=== PATIENT | female | born 1985 | race Two or more races ===

== ENCOUNTER 2017-12-16 17:45 | Emergency (ER) | payer MEDICAID ==
[2017-12-16 18:27] VITALS: BP 124/60
--- NOTE | 2017-12-16 19:49 | ED ---
Skin Complaint - HPI Summary HPI Summary: 32 year old presents with rash on right foot for the past couple days. She states that it started on her toes and has been spread up to her ankle. States the rash is very itchy. She hasn't taking anything for her symptoms. She states she is 5 months . She denies any fevers. No chest pain shortness breath. never had this rash before. She was outside. denies any Contact with any new products or soaps. Never had this rash before. No medical conditions. - History of Current Complaint Chief Complaint: EDRashSkinAbscess Time Seen by Provider: 12/16/17 19:12 Stated Complaint: RASH ON FOOT Hx Last Menstrual Period: 01/29/14 Pain Intensity: 0 - Allergy/Home Medications Allergies/Adverse Reactions: Allergies Allergy/AdvReac Type Severity Reaction Status Date / Time No Known Allergies Allergy Verified 12/16/17 19:20 Home Medications: Home Medications NK [No Home Medications Reported] 12/16/17 [History Confirmed 12/16/17] PMH/Surg Hx/FS Hx/Imm Hx Endocrine/Hematology History: Denies: Hx Diabetes, Hx Thyroid Disease Cardiovascular History: Denies: Hx Hypertension Respiratory History: Denies: Hx Asthma, Hx Chronic Obstructive Pulmonary Disease (COPD) GI History: Denies: Hx Ulcer - Surgical History Surgery Procedure, Year, and Place: wisdom teeth extraction Infectious Disease History: No Infectious Disease History: Denies: Hx Hepatitis, Hx Human Immunodeficiency Virus (HIV), Traveled Outside the [place] in Last 30 Days - Family History Known Family History: Positive: None - Social History Alcohol Use: None Substance Use Type: Reports: None Smoking Status (MU): Never Smoked Tobacco Have You Smoked in the Last Year: No Review of Systems Negative: Fever Negative: Chest Pain Negative: Shortness Of Breath Positive: Rash All Other Systems Reviewed And Are Negative: Yes Physical Exam Triage Information Reviewed: Yes Vital Signs On Initial Exam: Initial Vitals Temp Pulse Resp BP Pulse Ox 98.3 F 74 16 124/60 98 12/16/17 18:24 12/16/17 18:24 12/16/17 18:24 12/16/17 18:24 12/16/17 18:24 Vital Signs Reviewed: Yes Appearance: Positive: Well-Appearing Skin: Positive: Warm, Dry, Other - papules with eccorication on right foot in a line Head/Face: Positive: Normal Head/Face Inspection Eyes: Positive: Normal, Conjunctiva Clear ENT: Positive: Pharynx normal Respiratory/Lung Sounds: Positive: Clear to Auscultation, Breath Sounds Present Cardiovascular: Positive: Normal, RRR Musculoskeletal: Positive: Normal Neurological: Positive: Normal Psychiatric: Positive: Normal Diagnostics - Vital Signs Vital Signs Temp Pulse Resp BP Pulse Ox 12/16/17 18:24 98.3 F 74 16 124/60 98 - Laboratory Result Diagrams: 12/16/17 19:56 12/16/17 19:56 Lab Statement: Any lab studies that have been ordered have been reviewed, and results considered in the medical decision making process. Course/Dx - Course Course Of Treatment: 32 year old presents with rash on right foot for the past couple days. She states that it started on her toes and has been spread up to her ankle. States the rash is very itchy. She hasn't taking anything for her symptoms. She states she is 5 months . She denies any fevers. No chest pain shortness breath. never had this rash before. She was outside. denies any Contact with any new products or soaps. Never had this rash before. No medical conditions. on exam his papules in line on right foot. It appears most consistent with contact dermatitis. Got lab work and lfts normal do not suspect Intrahepatic cholestasis of . Patient has follow up with OB. Told to place hydrocortisone and take Benadryl. Patient understands agrees the plan. - Differential Diagnoses - Skin Complaint Differential Diagnoses: Cellulitis, Contact Dermatitis, Other - type rashes - Diagnoses Provider Diagnoses: Rash Discharge - Sign-Out/Discharge Documenting (check all that apply): Patient Departure - Discharge Plan Condition: Good Disposition: HOME Patient Education Materials: Contact Dermatitis (ED) Referrals: No Primary Care Phys,NOPCP [Primary Care Provider] - Additional Instructions: Take Benadryl every 6 hours Can apply cream with hydrocortisone to area for itchy can apply calamine lotion to area follow up with ob Return to ED if develop shortness of breath, difficulty swallowing or any new or worsening symptoms - Billing Disposition and Condition Condition: GOOD Disposition: Home
[2017-12-16 20:09] LABS: ABS Basophils 0.1 10^3/ul (0-0.2); ABS Eosinophils 0.1 10^3/ul (0-0.6); ABS Lymphocytes 2.4 10^3/ul (1.0-4.8); ABS Neutrophils 7.1 10^3/ul (1.5-7.7); ABS Nucleated RBC 0 10^3/ul; Eosinophil % 1.1 % (0-6); Hematocrit 36 % (35-47); Hemoglobin 12.4 g/dl (12.0-16.0); Lymphocyte % 22.4 % (25-47); Mean Corpuscular HGB Conc 34 g/dl (31-36); Mean Corpuscular Hemoglobin 31 pg (27-31); Mean Corpuscular Volume 92 fL (80-97); Mean Platelet Volume 8.6 um3 (7.4-10.4); Nucleated Red Blood Cells % 0; Platelet Count 224 10^3/ul (150-450); Red Blood Count 3.94 10^6/ul (4.00-5.40); Red Cell Distribution Width 13 % (10.5-15); White Blood Count 10.7 10^3/ul (3.5-10.8)
[2017-12-16 20:20] LABS: EGFR Non-African American 113.7 (>60)
== END 2017-12-16 20:50 | disposition home or self-care (01) ==
LOC: ED 17:45
DX: R21 Rash and other nonspecific skin eruption (principal)
CPT/HCPCS: 36415; 80053; 85025; 99282

== ENCOUNTER 2018-02-13 18:31 | Emergency (ER) | payer MEDICAID ==
[2018-02-13 19:59] LABS: ABS Basophils 0 10^3/ul (0-0.2); ABS Eosinophils 0.1 10^3/ul (0-0.6); ABS Monocytes 1.2 10^3/ul (0-0.8); ABS Neutrophils 8.7 10^3/ul (1.5-7.7); ABS Nucleated RBC 0 10^3/ul; Eosinophil % 0.8 % (0-6); Hematocrit 35 % (35-47); Hemoglobin 11.8 g/dl (12.0-16.0); Lymphocyte % 16.9 % (25-47); Mean Corpuscular HGB Conc 34 g/dl (31-36); Mean Corpuscular Hemoglobin 30 pg (27-31); Mean Corpuscular Volume 90 fL (80-97); Mean Platelet Volume 8.6 um3 (7.4-10.4); Nucleated Red Blood Cells % 0.1; Platelet Count 209 10^3/ul (150-450); Red Blood Count 3.89 10^6/ul (4.00-5.40); Red Cell Distribution Width 13 % (10.5-15); White Blood Count 12.1 10^3/ul (3.5-10.8)
[2018-02-13 20:19] LABS: EGFR Non-African American 110.9 (>60)
--- NOTE | 2018-02-13 21:43 | ED ---
HPI Chest Pain - HPI Summary HPI Summary: The pt is a 27-week 33 y/o female presenting to [facility] c/o mid sternal CP since yesterday. She reports cough but denies vaginal bleeding and discharge , N/V/D and SOB. The pain rated 7/10 in severity is described as burning. The pt denies a hx of GERD. She does not take vitamins. Dr Maru MD is her safety equipment tester. - History of Current Complaint Chief Complaint: EDChestPainROMI Time Seen by Provider: 02/13/18 21:13 Hx Obtained From: Patient Hx Last Menstrual Period: 01/29/14 Onset/Duration: Started Hours Ago Initial Severity: Moderate Current Severity: Moderate Pain Intensity: 7 Pain Scale Used: 0-10 Numeric Chest Pain Location: Mid Sternal Chest Pain Radiates: No Character: Burning, Cough, Non-Productive Alleviating Factor(s): Nothing Associated Signs and Symptoms: Positive: Chest Pain, Nonproductive Cough. Negative: Shortness of Breath, Nausea, Vomiting - Allergy/Home Medications Allergies/Adverse Reactions: Allergies Allergy/AdvReac Type Severity Reaction Status Date / Time No Known Allergies Allergy Verified 12/16/17 19:20 PMH/Surg Hx/FS Hx/Imm Hx Previously Healthy: No Endocrine/Hematology History: Denies: Hx Diabetes, Hx Thyroid Disease Cardiovascular History: Denies: Hx Hypertension Respiratory History: Reports: Hx Asthma Denies: Hx Chronic Obstructive Pulmonary Disease (COPD) GI History: Denies: Hx Gastroesophageal Reflux Disease, Hx Ulcer - Cancer History Cancer Type, Location and Year: None reported - Surgical History Surgery Procedure, Year, and Place: wisdom teeth extraction Infectious Disease History: No Infectious Disease History: Denies: Hx Hepatitis, Hx Human Immunodeficiency Virus (HIV), Traveled Outside the [place] in Last 30 Days - Family History Known Family History: Negative: Cardiac Disease, Diabetes - Social History Occupation: Employed Full-time Lives: With Family Alcohol Use: Occasionally Substance Use Type: Reports: Marijuana Smoking Status (MU): Never Smoked Tobacco Have You Smoked in the Last Year: No Review of Systems Positive: Chest Pain Positive: Cough. Negative: Shortness Of Breath Negative: Vomiting, Diarrhea, Nausea Genitourinary: Negative - Vaginal bleeding abnd discharge All Other Systems Reviewed And Are Negative: Yes Physical Exam - Summary Physical Exam Summary: GENERAL: Patient is a gravid well developed and nourished F who is lying comfortable in the stretcher. Patient is not in any acute respiratory distress. HEAD AND FACE: Normocephalic EYES: PERRLA, EOMI x 2. EARS: Hearing grossly intact. MOUTH: Oropharynx within normal limits. NECK: Supple, trachea is midline, no adenopathy, no JVD, no carotid bruit. CHEST: Symmetric, no tenderness at palpation LUNGS: Clear to auscultation bilaterally. No wheezing or crackles. CVS: Regular rate and rhythm, S1 and S2 present, no murmurs or gallops appreciated. ABDOMEN: Soft, non-tender. Bowel sounds are normal. No abdominal abnormal pulsations. EXTREMITIES: Full ROM in all major joints, no edema, no cyanosis or clubbing. NEURO: Alert and oriented x 3. No acute neurological deficits. Speech is normal and follows commands. SKIN: Dry and warm Triage Information Reviewed: Yes Vital Signs On Initial Exam: Initial Vitals Temp Pulse Resp BP Pulse Ox 97.5 F 68 18 116/58 98 02/13/18 18:33 02/13/18 18:33 02/13/18 18:33 02/13/18 18:33 02/13/18 18:33 Vital Signs Reviewed: Yes Diagnostics - Vital Signs Vital Signs Temp Pulse Resp BP Pulse Ox 02/13/18 18:33 97.5 F 68 18 116/58 98 - Laboratory Lab Results: Lab Results 02/13/18 02/13/18 02/13/18 Range/Units 19:50 19:50 19:50 WBC 12.1 H (3.5-10.8) 10^3/ul RBC 3.89 L (4.00-5.40) 10^6/ul Hgb 11.8 L (12.0-16.0) g/dl Hct 35 (35-47) % MCV 90 (80-97) fL MCH 30 (27-31) pg MCHC 34 (31-36) g/dl RDW 13 (10.5-15) % Plt Count 209 (150-450) 10^3/ul MPV 8.6 (7.4-10.4) um3 Neut % (Auto) 72.0 (38-83) % Lymph % (Auto) 16.9 L (25-47) % [place] % (Auto) 10.1 H (0-7) % Eos % (Auto) 0.8 (0-6) % Baso % (Auto) 0.2 (0-2) % Absolute Neuts (auto) 8.7 H (1.5-7.7) 10^3/ul Absolute Lymphs (auto) 2.0 (1.0-4.8) 10^3/ul Absolute Monos (auto) 1.2 H (0-0.8) 10^3/ul Absolute Eos (auto) 0.1 (0-0.6) 10^3/ul Absolute Basos (auto) 0 (0-0.2) 10^3/ul Absolute Nucleated RBC 0 10^3/ul Nucleated RBC % 0.1 Sodium 136 (135-145) mmol/L Potassium 3.8 (3.5-5.0) mmol/L Chloride 105 (101-111) mmol/L Carbon Dioxide 25 (22-32) mmol/L Anion Gap 6 (2-11) mmol/L BUN 6 (6-24) mg/dL Creatinine 0.62 (0.51-0.95) mg/dL Est GFR ( Amer) 134.1 (>60) Est GFR (Non-Af Amer) 110.9 (>60) BUN/Creatinine Ratio 9.7 (8-20) Glucose 99 (70-100) mg/dL Lactic Acid 1.0 (0.5-2.0) mmol/L Calcium 8.6 (8.6-10.3) mg/dL Total Bilirubin 0.50 (0.2-1.0) mg/dL AST 14 (13-39) U/L ALT 10 (7-52) U/L Alkaline Phosphatase 74 (34-104) U/L Troponin I 0.00 (<0.04) ng/mL Total Protein 6.7 (6.4-8.9) g/dL Albumin 3.3 (3.2-5.2) g/dL Globulin 3.4 (2-4) g/dL Albumin/Globulin Ratio 1.0 (1-3) 02/13/18 Range/Units 21:05 WBC (3.5-10.8) 10^3/ul RBC (4.00-5.40) 10^6/ul Hgb (12.0-16.0) g/dl Hct (35-47) % MCV (80-97) fL MCH (27-31) pg MCHC (31-36) g/dl RDW (10.5-15) % Plt Count (150-450) 10^3/ul MPV (7.4-10.4) um3 Neut % (Auto) (38-83) % Lymph % (Auto) (25-47) % [place] % (Auto) (0-7) % Eos % (Auto) (0-6) % Baso % (Auto) (0-2) % Absolute Neuts (auto) (1.5-7.7) 10^3/ul Absolute Lymphs (auto) (1.0-4.8) 10^3/ul Absolute Monos (auto) (0-0.8) 10^3/ul Absolute Eos (auto) (0-0.6) 10^3/ul Absolute Basos (auto) (0-0.2) 10^3/ul Absolute Nucleated RBC 10^3/ul Nucleated RBC % Sodium (135-145) mmol/L Potassium (3.5-5.0) mmol/L Chloride (101-111) mmol/L Carbon Dioxide (22-32) mmol/L Anion Gap (2-11) mmol/L BUN (6-24) mg/dL Creatinine (0.51-0.95) mg/dL Est GFR ( Amer) (>60) Est GFR (Non-Af Amer) (>60) BUN/Creatinine Ratio (8-20) Glucose (70-100) mg/dL Lactic Acid (0.5-2.0) mmol/L Calcium (8.6-10.3) mg/dL Total Bilirubin (0.2-1.0) mg/dL AST (13-39) U/L ALT (7-52) U/L Alkaline Phosphatase (34-104) U/L Troponin I 0.00 (<0.04) ng/mL Total Protein (6.4-8.9) g/dL Albumin (3.2-5.2) g/dL Globulin (2-4) g/dL Albumin/Globulin Ratio (1-3) Result Diagrams: 02/13/18 19:50 02/13/18 19:50 Lab Statement: Any lab studies that have been ordered have been reviewed, and results considered in the medical decision making process. - Radiology CXR Radiology Interpretation Completed By: ED Physician - IMPRESSION: No acute processes - Ultrasound No standard instances Ultrasound Interpretation Completed By: Radiologist - VENOUS MPRESSION: No acute findings. No evidence of deep vein thrombosis. The ED physician reviewed this radiology report. - EKG 18:36 Cardiac Rate: NL - 65 bpm EKG Rhythm: Sinus Rhythm Ectopy: PACs - Occassional Re-Evaluation - Re-Evaluation First Eval Re-Evaluation Time: 00:37 Change: Improved - The pt was scheduled for a second trooponin but wants to go home. She requests to be called if the results are abnormal. Chest Pain Course/Dx - Course Course Of Treatment: A 33 year-old 27-week F presents to the ED with a CC of mid sternal CP since yesterday. She reports cough but denies vaginal bleeding and discharge, N/V/D and SOB. The pain rated 7/10 in severity is described as burning. The pt denies a hx of GERD. A physical exam revealed a gravid state and is otherwise unremarkable. A CXR is unremarkable. An EKG reveals occasional PACs. A venous Dopper study is unremarkable. In the ED course, pt was given a GI cocktail with Lidocaine which improved the symptoms. Patient will be discharged with a final Dx of chest pain. I discussed the care of the pt with Dr. Charanjit Harding MD who agreed with giving the pt a GI cocktail containing Lidocaine. The pts D dimer is elevated due to normal physiology of . She is not tachycardia or hypoxic. Hence low suspicion for pulmonary embolism. An ultrasound in the ED revealed a heart rate between 150 and 160 bpm. I discussed results with patient and she agrees with this plan.She is hemodynamically stable upon discharge. Strict return precautions given and she will otherwise follow up with her PCP. Allergies noted. - Diagnoses Provider Diagnoses: Chest pain, - Provider Notifications Discussed Care Of Patient With: Meaghan Donohue - Utilization Supervisor Time Discussed With Above Provider: 23:21 Instructed by Provider To: Other - Dr. Donhoue agrees with giving the GI coctail with liquid lidocaine. The Utilization Supervisor team performed an US that revealed a HR between 150 and 160. Discharge - Sign-Out/Discharge Documenting (check all that apply): Patient Departure - DC - Discharge Plan Condition: Improved Disposition: HOME Patient Education Materials: Chest Pain (ED), Gastroesophageal Reflux Disease ( ED) Referrals: [facility] [Outside] Additional Instructions: Follow up with PCP in 1-3 days. Return to ED for any new or worsening symptoms - Billing Disposition and Condition Condition: IMPROVED Disposition: Home - Attestation Statements Document Initiated by Scribe: Yes Documenting Scribe: An Allen Provider For Whom Scribe is Documenting (Include Credential): Dr. Bradley Oliver MD Scribe Attestation: An Jane, scribed for Dr. Bradley Oliver MD on 02/14/18 at 0518. Scribe Documentation Reviewed: Yes Provider Attestation: The documentation as recorded by the An yarbrough accurately reflects the service I personally performed and the decisions made by me, Dr. Bradley Oliver MD
[2018-02-13] MEDS ORDERED: Ranitidine TAB (NF) 150 MG TAB PO ONE (21:55)
[2018-02-13] MEDS ORDERED: Famotidine TAB* 20 MG PO ONE (23:00)
[2018-02-13] MEDS ORDERED: Al Hydrox/Mg Hydrox/Simet LIQ* 30 ML UDC PO ONE (23:24)
[2018-02-13] MEDS ORDERED: Lidocaine 2% VISCOUS* 15 ML UDC PO ONE (23:24)
--- NOTE | 2018-02-13 23:53 | RAD ---
EXAM: US Bilateral Duplex Lower Extremity Veins EXAM DATE/TIME: 02/13/2018 11:35 PM CLINICAL HISTORY: 33 years old, female; Signs and symptoms; Other: Chest pain, ; Additional info: Eval for dvt TECHNIQUE: Real-time duplex ultrasound of the Bilateral Lower Extremities with 2-D dotson scale, color Doppler flow and spectral waveform analysis. Complete exam focused on the bilateral lower extremity veins. COMPARISON: No relevant prior studies available. FINDINGS: Right deep veins: Normal. The common femoral, femoral and popliteal veins are patent without thrombus. Normal compressibility, augmentation response and Doppler waveforms. Right superficial veins: Saphenofemoral junction is patent without thrombus. Left deep veins: Normal. The common femoral, femoral and popliteal veins are patent without thrombus. Normal compressibility, augmentation response and Doppler waveforms. Left superficial veins: Saphenofemoral junction is patent without thrombus. Soft tissues: Normal. IMPRESSION: No acute findings. No evidence of deep vein thrombosis. To contact [facility] with a general question: [facility] - [phone] For direct physician to physician contact: Physician Hotline - [phone] [facility] ([facility] Facility ID #[id number])
[2018-02-14 00:45] VITALS: BP 138/85
--- NOTE | 2018-02-14 07:51 | RAD ---
HISTORY: chest pain COMPARISONS: None VIEWS: 1: frontal AP view of the chest at 6:56 PM FINDINGS: LINES AND TUBES: None. CARDIOMEDIASTINAL SILHOUETTE: The cardiomediastinal silhouette is normal for portable technique. PLEURA: The costophrenic angles are sharp. No pleural abnormalities are noted. LUNG PARENCHYMA: The lungs are clear. ABDOMEN: The upper abdomen is clear. There is no subphrenic gas. BONES AND SOFT TISSUES: No bone or soft tissue abnormalities are noted. IMPRESSION: NO ACTIVE CARDIOPULMONARY DISEASE. R0
== END 2018-02-14 00:32 | disposition home or self-care (01) ==
LOC: ED 18:31
DX: R07.9 Chest pain, unspecified (principal); R05 Cough; Z34.92 Encounter for supervision of normal pregnancy, unspecified, second trimester
CPT/HCPCS: 36415; 71045; 80053; 83605; 83690; 84484; 85025; 85379; 93005; 93970; 99283; A9270-GY

== ENCOUNTER 2018-02-18 18:12 | Emergency (ER) | payer MEDICAID ==
[2018-02-18 18:44] VITALS: BP 111/66
--- NOTE | 2018-02-18 18:56 | UC ---
Respiratory Complaint HPI - HPI Summary HPI Summary: 33 yo female presents with sinus pain/pressure/congestion and productive cough. She is currently 28 weeks and this is her 3rd . She has had no issues thusfar and the baby is very active. She tells me that about 5 days ago she went to the ER for chest pain with coughing. Per pt they took XRs and bloodwork and everything was normal and she was not treated with any medications. Since that time she has had worsening sinus symptoms and her cough is persistent. She has not been taking anything OTC. Denies fever, chills, SOB, chest pain, abdominal pain, or vaginal bleeding. - History of Current Complaint Chief Complaint: UCRespiratory Stated Complaint: COUGH, AND CONGESTION Time Seen by Provider: 02/18/18 18:55 Hx Obtained From: Patient Hx Last Menstrual Period: 01/29/14 Onset/Duration: Gradual Onset Severity Initially: Moderate Severity Currently: Moderate Pain Intensity: 8 Pain Scale Used: 0-10 Numeric Character: Cough: Productive - Allergies/Home Medications Allergies/Adverse Reactions: Allergies Allergy/AdvReac Type Severity Reaction Status Date / Time No Known Allergies Allergy Verified 02/18/18 18:44 PMH/Surg Hx/FS Hx/Imm Hx - Additional Past Medical History Additional PMH: None - Surgical History Surgical History: Yes Surgery Procedure, Year, and Place: wisdom teeth extraction - Family History Known Family History: Positive: None Negative: Cardiac Disease, Diabetes - Social History Occupation: Employed Full-time Lives: With Family Alcohol Use: None Substance Use Type: None Smoking Status (MU): Never Smoked Tobacco Have You Smoked in the Last Year: No - Immunization History Most Recent Influenza Vaccination: 02/11/15 Most Recent Tetanus Shot: 01/28/15 Most Recent Pneumonia Vaccination: not indicated Review of Systems Constitutional: Negative Skin: Negative Eyes: Negative ENT: Nasal Discharge, Sinus Congestion, Sinus Pain/Tenderness Respiratory: Cough Cardiovascular: Negative Gastrointestinal: Negative Genitourinary: Negative Neurovascular: Negative Neurological: Negative Psychological: Negative All Other Systems Reviewed And Are Negative: Yes Physical Exam - Summary Physical Exam Summary: GENERAL: NAD. Mildly ill appearing SKIN: No rashes, sores, lesions, or open wounds. HEENT: Head: AT/NC Eyes: EOM intact. Conjunctiva clear without inflammation or discharge. Ears: Hearing grossly normal. TMs intact, no bulging, erythema, or edema. Nose: Nasal mucosa mildly swollen and erythematous. TTP maxillary and frontal sinus. Positive post nasal drip Throat: Posterior oropharynx without exudates, erythema, or tonsillar enlargement. Uvula midline. NECK: Supple. Nontender. No lymphadenopathy. CHEST: CTAB. No r/r/w. No accessory muscle use. Breathing comfortably and in no distress. CV: RRR. Without m/r/g. Pulses intact. NEURO: Alert. PSYCH: Age appropriate behavior. Triage Information Reviewed: Yes Vital Signs: Initial Vital Signs Temp 98.1 F 02/18/18 18:40 Pulse 78 02/18/18 18:40 Resp 18 02/18/18 18:40 BP 111/66 02/18/18 18:40 Pulse Ox 99 02/18/18 18:40 Vital Signs Reviewed: Yes UC Diagnostic Evaluation - Laboratory O2 Sat by Pulse Oximetry: 99 Respiratory Course/Dx - Course Course Of Treatment: Sinusitis. She has a follow up with her OBGYN in 10 days and I advised her to be rechecked with their office. - Differential Dx/Diagnosis Provider Diagnoses: Sinusitis Discharge - Sign-Out/Discharge Documenting (check all that apply): Patient Departure All imaging exams completed and their final reports reviewed: No Studies - Discharge Plan Condition: Stable Disposition: HOME Prescriptions: Azithromycin TAB* [Zithromax TAB (Z-AMOS) 250 mg #6 tabs] 2 tab PO .TODAY, THEN 1 DAILY #1 amos Patient Education Materials: Sinusitis (ED), Acute Bronchitis (ED) Referrals: No Primary Care Phys,NOPCP [Primary Care Provider] - Additional Instructions: If you develop a fever, shortness of breath, chest pain, new or worsening symptoms - please call your PCP or go to the ED. - Billing Disposition and Condition Condition: STABLE Disposition: Home - Attestation Statements Provider Attestation: Per institutional requirements, I have reviewed the chart, however, I was not consulted specifically or made aware of this patient by the midlevel provider. I did not personally evaluate, interact with , or disposition this patient.
== END 2018-02-18 19:14 | disposition home or self-care (01) ==
LOC: UCEAST 18:12
DX: O26.893 Other specified pregnancy related conditions, third trimester (principal); J01.90 Acute sinusitis, unspecified; Z3A.28 28 weeks gestation of pregnancy
CPT/HCPCS: 99212; G0463

== ENCOUNTER 2018-05-04 18:58 | Inpatient (IN) | payer MEDICAID ==
[2018-05-04] MEDS ORDERED: Promethazine INJ(RESTRICTED)* 25 MG/ML 1 ML VIAL IV ONE (19:52)
[2018-05-04] MEDS ORDERED: Nalbuphine* 10 MG/ML 1 ML VIAL IV ONE (19:52)
--- NOTE | 2018-05-04 19:58 | PN ---
L&D Outpatient: Visit - Reproductive Information Estimated Due Date: 05/14/18 Gestational Age: 38 Weeks and 4 Days : 3 Para: 2 - Reason for Visit Visit Reason: prodromal labor - Antepartal Records Antepartal Record: Reviewed, Complicated by: - Marginal previa ( resolved), GBS + - Patient History Patient History Significant: No Review of Systems Constitutional: Uncomfortable CV Complaint: No Respiratory: Shortness of Breath: No Gastrointestinal: No Nausea/Vomiting, Normal Bowel Movement Genitourinary: No Dysuria, No Bleeding, No Leaking Fluid Musculoskeletal: Contractions Neurological: No Headache, No Visual Changes Movement: Normal L&D Outpatient: Exam Vitals - Most Recent: T:98.4, P:76, R:18, BP: 123/68, O2:98% - Cervical Exam Cervical Exam: 2-3//-2 - Abdominal Exam Abdomen Exam: Fundal Height Consistent with Dates - Membranes Membrane Status: Possible SROM/Pending - Ultrasound/Biophysical Profile Ultrasound Status: Not Done EFM Findings - External Monitor Findings Baseline Heart Rate: 135 External Monitor Findings: Accelerations Present, No Pattern of Variable or Late Decelerations, Variability Moderate, Baseline Stable Contractions: Irregular, Mild, < 45 Seconds L&D Outpatient: Asses/Plan Assessment: 33 y.o. , prodromal labor x 4 days, 38w4d EGA - Discharge Diagnosis Discharge Diagnosis: False Labor, Dehydration Plan: Continue Observation - IV fluids, therapeutic rest
[2018-05-04] MEDS ORDERED: Lactated Ringers 1000 ML Bag* 1,000 ML IV SCH ×2 (20:00)
[2018-05-05] MEDS ORDERED: Penicillin G Potassium IV* 5,000,000 UNITS in NS 0.9% 100 ML* 100 ML IVPB ONE (02:00)
[2018-05-05] MEDS: Penicillin G Potassium IV* 2,500,000 UNITS in NS 0.9% 100 ML* 100 ML IVPB SCH ×4 (07:07→18:30)
[2018-05-05] MEDS ORDERED: Buffered Lidocaine 1% SYRIN* 1 ML/SYRINGE INTRADERM ONE (07:38)
[2018-05-05] MEDS ORDERED: Lactated Ringers 1000 ML Bag* 1,000 ML IV ONE ×2 (07:38→16:54)
--- NOTE | 2018-05-05 07:44 | HP ---
General Information - Reason for Visit PROM - General Information Maternal Age: 33 Grav: 3 Para: 2 SAB: 0 IEA: 0 Estimated Due Date: 05/14/18 Determined By: Early Ultrasound Gestational Age in Weeks/Days: 38.5 Maternal Blood Type and Rh: O Positive - Results this Serology/RPR Result: Non-Reactive Rubella Result: Immune HBsAg Result: Negative HIV Result: Negative GBS Culture Result: Positive Past Medical History Delivery History: Hx Uncomplicated Vaginal Delivery Pertinent Past Medical History: Non-Contributory Pertinent Past Surgical History: None Pertinent Family History: See Records - HTN, CVD, DM, [place] - Antepartal Records Antepartal Records: Reviewed, Complicated by: - marginal previa ( resolved), GBS + Review of Systems Constitutional: Comfortable CV Complaint: No Respiratory: Shortness of Breath: No Gastrointestinal: No Nausea/Vomiting, Normal Bowel Movement Genitourinary: Leaking Fluid, No Dysuria, No Bleeding Musculoskeletal: No Epigastric Pain, Contractions Neurological: No Headache, No Visual Changes Movement: Normal Exam Allergies/Adverse Reactions: Allergies No Known Allergies Allergy (Verified 02/18/18 18:44) Lab Values - Entire Visit: Laboratory Tests 05/04/18 19:15 Vag Amniotic Fld Detect Negative - Measurements Height: 5 ft 3 in Pre- Weight: 150 lb - Exam Breast: Breast Exam Deferred CVA: No CVA Tenderness Extremities: No Edema Heart: Normal Rhythm/Heart Sounds HEENT: No Significant Findings Lungs: Clear Bilaterally Rectal: Rectal Exam Deferred Reflexes: DTR 2+ Thyroid: No Thyromegaly - Abdominal Exam Abdomen Exam: Fundal Height Consistent with Dates - Ultrasound/Biophysical Profile Ultrasound Status: Not Done Targeted Exam Findings Estimated Weight: 7lbs 10oz Cervical Exam: 3cm Effacement: 70% Station: -2 Presenting Part: Vertex Membrane Status: Leaking Amniotic Fluid Evaluation: Gross Rupture EFM Findings - External Monitor Findings Baseline Heart Rate: 135 External Monitor Findings: Accelerations Present, No Pattern of Variable or Late Decelerations, Variability Moderate, Baseline Stable Contractions: Irregular, Mild, < 45 Seconds Contraction Frequency: 3-10 Assessment/Plan - Assessment 33 y.o. , PROM - Obstetrical Risk Factors Obstetrical Risk Factors: GBS Positive - Plan Plan: Antibiotic Prophylaxis, Admit - Anticipate Vaginal Delivery Plan Comment: plan augmentation - Date/Time of Admission Date of Admission: 05/05/18 Time of Admission: 02:21
[2018-05-05 07:58] LABS: ABS Basophils 0.1 10^3/ul (0-0.2); ABS Eosinophils 0.1 10^3/ul (0-0.6); ABS Lymphocytes 2.6 10^3/ul (1.0-4.8); ABS Monocytes 1.1 10^3/ul (0-0.8); ABS Neutrophils 6.8 10^3/ul (1.5-7.7); ABS Nucleated RBC 0 10^3/ul; Eosinophil % 0.6 %; Hematocrit 33 % (35-47); Lymphocyte % 24.6 %; Mean Corpuscular HGB Conc 33 g/dl (31-36); Mean Corpuscular Hemoglobin 28 pg (27-31); Mean Corpuscular Volume 84 fL (80-97); Mean Platelet Volume 8.8 fL (7.4-10.4); Nucleated Red Blood Cells % 0.1; Platelet Count 198 10^3/ul (150-450); Red Blood Count 3.94 10^6/ul (4.00-5.40); Red Cell Distribution Width 15 % (10.5-15); White Blood Count 10.7 10^3/ul (3.5-10.8)
[2018-05-05] MEDS ORDERED: Lactated Ringers 1000 ML Bag* 1,000 ML IV SCH ×3 (08:00→19:00)
--- NOTE | 2018-05-05 11:11 | PN ---
Progress Note - Progress Note Date of Service: 05/05/18 SOAP: Subjective: [Pt reports ctx increasing in intensity slightly and a bit more pressure but ctx still irregular. +FM, -VB, +LOF.] Objective: [117/60, P:62, R:17, T:98.7, FHT: 145 bpm cervix: 4cm/70/-2] Assessment: [33 y.o. , early labor, SROM, GBS +] Plan: [1) Reviewed mgmt options and R vs B of augmentation versus expectant mgmt. pt elects to continue with pitocin augmentation. 2) Con't GBS prophylaxis 3) Encourage ambulation and position changes for descent.]
[2018-05-05] MEDS ORDERED: Oxytocin in LR* 20 UNITS/1,000 ML BAG IVPB SCH (12:00)
[2018-05-05] MEDS ORDERED: OBEPIDURAL* 250 ML EPIDURAL ONE (16:49)
[2018-05-05] MEDS ORDERED: Sodium Citrate/Citric Acid* 15 ML UDC PO PRN (16:54)
[2018-05-05] MEDS ORDERED: Phenylephrine IV* 40 MCG/ML 10 ML SYRINGE IV PUSH PRN (16:54)
[2018-05-05] MEDS ORDERED: Famotidine TAB* 20 MG PO PRN (16:54)
[2018-05-05] MEDS ORDERED: OBEPIDURAL* 250 ML EPIDURAL SCH (17:00)
--- NOTE | 2018-05-05 17:05 | PN ---
Progress Note - Progress Note Date of Service: 05/05/18 SOAP: Subjective: [Pt reports contractions increasing in intensity, pt reprts pressure, requests epidural.] Objective: [139/93, P:87, R:18, T:98.5, FHR: 145, + accels, occasional variables, moderate variability cervix: /0] Assessment: [33 y.o. , transition] Plan: [1) Epidural, anesthesia consult 2) Anticipate vaginal delivery]
[2018-05-05] MEDS ORDERED: Dibucaine 1% 28.35 GM TUBE PR PRN (18:29)
[2018-05-05] MEDS ORDERED: Witch Hazel PAD* JAR TOPICAL PRN (18:29)
[2018-05-05] MEDS ORDERED: Glycerin ADULT SUPP PR PRN (18:29)
--- NOTE | 2018-05-05 18:31 | PROCNOTE ---
[facility]: Delivery Note - Delivery A Date of : 05/05/18 Time of : 18:16 Sex: Male Score 1 Minute: 9 Score 5 Minutes: 9 Gestational Age in Weeks and Days at Delivery: 38 Weeks and 5 Days Delivery Method: Spontaneous Vaginal Labor: Spontaneous - augmented Did Patient attempt ?: N/A, No Previous Amniotic Fluid: Clear Estimated Blood Loss: 150 Anesthesia/Analgesia: CEI for Labor Delivered By: Janay Burch - Nursery Level of Nursery: Regular/Bedside - Perineum Perineal Injury: Abrasion Only - Not Repaired - 1 stitch with 4.0 vicryl Perineal Repair: By Delivering Practioner - Events Delivery Events of Note: Pitocin During Labor, Full Course of Antibiotics Delivery Events of Note Comment: left nuchal arm
[2018-05-05] MEDS ORDERED: Simethicone TAB* 80 MG TAB.CHEW PO SCH (21:00)
[2018-05-05] MEDS: Ibuprofen TAB* 600 MG PO PRN (21:11)
[2018-05-06] MEDS: Docusate CAP* 100 MG PO SCH ×4 (00:13→23:11)
[2018-05-06] MEDS: Ibuprofen TAB* 600 MG PO PRN ×3 (04:18→20:34)
[2018-05-06] MEDS: Acetaminophen TAB* 325 MG PO PRN (08:32)
[2018-05-06] MEDS ORDERED: Ferrous Gluconate TAB* 324 MG TAB PO SCH (09:00)
[2018-05-06 09:05] LABS: ABS Basophils 0.1 10^3/ul (0-0.2); ABS Eosinophils 0.1 10^3/ul (0-0.6); ABS Lymphocytes 2.5 10^3/ul (1.0-4.8); ABS Monocytes 1.4 10^3/ul (0-0.8); ABS Neutrophils 13.1 10^3/ul (1.5-7.7); ABS Nucleated RBC 0 10^3/ul; Eosinophil % 0.5 %; Hematocrit 33 % (35-47); Hemoglobin 10.9 g/dl (12.0-16.0); Lymphocyte % 14.4 %; Mean Corpuscular HGB Conc 33 g/dl (31-36); Mean Corpuscular Hemoglobin 28 pg (27-31); Mean Corpuscular Volume 84 fL (80-97); Mean Platelet Volume 8.8 fL (7.4-10.4); Nucleated Red Blood Cells % 0; Platelet Count 213 10^3/ul (150-450); Red Blood Count 3.96 10^6/ul (4.00-5.40); Red Cell Distribution Width 15 % (10.5-15); White Blood Count 17.1 10^3/ul (3.5-10.8)
[2018-05-07] MEDS: Acetaminophen TAB* 325 MG PO PRN (00:17)
[2018-05-07] MEDS: Docusate CAP* 100 MG PO SCH (09:37)
[2018-05-07] MEDS: Ibuprofen TAB* 600 MG PO PRN (09:37)
[2018-05-07 09:42] VITALS: BP 124/66
== END 2018-05-07 13:50 | disposition home or self-care (01) | DRG 560 ==
LOC: MCHOBOUT 18:58 → MCHOB 05-05 01:23
PROVIDERS: ADMIT Midwife; ATTEND Midwife
PROC: 10E0XZZ Delivery of Products of Conception, External Approach (ICD-10-PCS; principal; 2018-05-05)
PROC: 0HQ9XZZ Repair Perineum Skin, External Approach (ICD-10-PCS; 2018-05-05)
DX: O42.02 Full-term premature rupture of membranes, onset of labor within 24 hours of rupture (principal); Z37.0 Single live birth; O99.824 Streptococcus B carrier state complicating childbirth; O70.0 First degree perineal laceration during delivery; O90.81 Anemia of the puerperium; D64.9 Anemia, unspecified; Z3A.38 38 weeks gestation of pregnancy
CPT/HCPCS: 36415; 84112; 85025; 86850; 86900; 86901; A9270-GY; J2300; J2540; J2550

== ENCOUNTER 2019-01-12 17:33 | Emergency (ER) | payer MEDICAID ==
[2019-01-12] MEDS ORDERED: Ketorolac INJ* 30 MG/ML 1 ML VIAL IM ONE ×2 (19:52)
--- NOTE | 2019-01-12 19:52 | ED ---
Upper Extremity Pain - HPI Summary HPI Summary: 33-year-old female presents with right shoulder pain for the past couple days. 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 She has had shoulder pain since then. Has limited overhead range of motion. No numbness or tingling. He is right-handed. 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 Has no significant medical conditions. - History of Current Complaint Chief Complaint: EDExtremityUpper Stated Complaint: SHOULDER INJURY PER PT Time Seen by Provider: 01/12/19 19:19 Hx Last Menstrual Period: 01/29/14 - Allergies/Home Medications Allergies/Adverse Reactions: Allergies Allergy/AdvReac Type Severity Reaction Status Date / Time No Known Allergies Allergy Verified 01/12/19 17:45 PMH/Surg Hx/FS Hx/Imm Hx Endocrine/Hematology History: Denies: Hx Diabetes, Hx Thyroid Disease Cardiovascular History: Denies: Hx Hypertension Respiratory History: Reports: Hx Asthma - exercise induced Denies: Hx Chronic Obstructive Pulmonary Disease (COPD) GI History: Denies: Hx Gastroesophageal Reflux Disease, Hx Ulcer - Cancer History Cancer Type, Location and Year: None reported - Surgical History Surgery Procedure, Year, and Place: wisdom teeth extraction Infectious Disease History: No Infectious Disease History: Denies: Hx Hepatitis, Hx Human Immunodeficiency Virus (HIV), Traveled Outside the [place] in Last 30 Days - Family History Known Family History: Positive: None Negative: Cardiac Disease, Diabetes - Social History Alcohol Use: None Substance Use Type: Reports: None Smoking Status (MU): Never Smoked Tobacco Have You Smoked in the Last Year: No Review of Systems Negative: Fever Negative: Chest Pain Negative: Shortness Of Breath Positive: Myalgia - right shoulder pain All Other Systems Reviewed And Are Negative: Yes Physical Exam Triage Information Reviewed: Yes Vital Signs On Initial Exam: Initial Vitals Temp Pulse Resp BP Pulse Ox 98.0 F 55 16 127/75 100 01/12/19 17:43 01/12/19 17:43 01/12/19 17:43 01/12/19 17:43 01/12/19 17:43 Vital Signs Reviewed: Yes Appearance: Positive: Well-Appearing Skin: Positive: Warm, Dry Head/Face: Positive: Normal Head/Face Inspection Eyes: Positive: Normal, EOMI, LUCIO, Conjunctiva Clear ENT: Positive: Pharynx normal Respiratory/Lung Sounds: Positive: Clear to Auscultation, Breath Sounds Present Cardiovascular: Positive: Normal, RRR Musculoskeletal: Positive: Limited @ - right shoulder, Other - tenderness right shoulder, good pulses, capillary refill<2secs Neurological: Positive: Normal Psychiatric: Positive: Normal Diagnostics - Vital Signs Vital Signs Temp Pulse Resp BP Pulse Ox 01/12/19 17:43 98.0 F 55 16 127/75 100 - Laboratory Lab Statement: Any lab studies that have been ordered have been reviewed, and results considered in the medical decision making process. - Radiology shoulder Radiology Interpretation Completed By: ED Physician Summary of Radiographic Findings: no fracture Course/Dx - Course Course Of Treatment: 33-year-old female presents with right shoulder pain for the past couple days. 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 She has had shoulder pain since then. Has limited overhead range of motion. No numbness or tingling. He is right-handed. 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 Has no significant medical conditions. On exam has tenderness over right shoulder. Neurovascular intact. X-ray read as no fracture. Told to ice and take ibuprofen. Patient understands agrees with plan. - Diagnoses Differential Diagnosis/HQI/PQRI: Positive: Fracture (Closed), Strain, Sprain Provider Diagnoses: Right shoulder pain Discharge ED - Sign-Out/Discharge Documenting (check all that apply): Patient Departure Patient Received Moderate/Deep Sedation with Procedure: No - Discharge Plan Condition: Good Disposition: HOME Prescriptions: Cyclobenzaprine TAB* [Flexeril 10 MG TAB*] 10 mg PO TID PRN #15 tab PRN Reason: Pain - Moderate Patient Education Materials: Shoulder Pain (ED) Referrals: No Primary Care Phys,NOPCP [Primary Care Provider] - Randell Horton MD [Medical Doctor] - Additional Instructions: Take Tylenol and ibuprofen every 6 hours as needed for pain take flexeril three times a day for pain Ice/heat Can rest for one day and then need to do range of motion activities for shoulder Follow up with ortho if no improvement Return to ED if develop any new or worsening symptoms - Billing Disposition and Condition Condition: GOOD Disposition: Home - Attestation Statements Provider Attestation: I was available for consultation for this patient. I did not evaluate the patient or participate in any medical decision making or disposition decisions unless I am specifically named in the chart as having consulted on the patient. If I have consulted on the patient, please see my own ED note on the patient encounter. Jacobo Morales MD
[2019-01-12 20:17] VITALS: BP 132/63
== END 2019-01-12 20:15 | disposition home or self-care (01) ==
LOC: ED 17:33
DX: M25.511 Pain in right shoulder (principal); J45.909 Unspecified asthma, uncomplicated
CPT/HCPCS: 96372; 99282; J1885

== ENCOUNTER 2019-06-15 20:46 | Emergency (ER) | payer MEDICAID, OTHER ==
[2019-06-15] MEDS ORDERED: guaiFENesin 100 mg/5 ml LIQ unit dose cup PO ONE (21:16)
[2019-06-15] MEDS ORDERED: Lidocaine 2% VISCOUS* 15 ML UDC PO ONE (21:17)
--- NOTE | 2019-06-15 22:05 | ED ---
Respiratory - HPI Summary HPI Summary: 34 year old female presents with cough for the past couple days. She states that she is having dry cough. When she cough she states that it irritates her throat and feels like it is closing up. States that she has not had any postnasal drip or sinus congestion. no fevers. No vomiting. No nausea. Denies any muscle aches. She states does not have a history of asthma or COPD. She is not a smoker. Has been taking Mucinex. - History of Current Complaint Chief Complaint: EDUpperRespComplaint Stated Complaint: COUGH Time Seen by Provider: 06/15/19 21:04 Pain Intensity: 6 - Allergy/Home Medications Allergies/Adverse Reactions: Allergies Allergy/AdvReac Type Severity Reaction Status Date / Time No Known Allergies Allergy Verified 06/15/19 20:49 Home Medications: Home Medications Cyclobenzaprine TAB* [Flexeril 10 MG TAB*] 10 mg PO TID PRN #15 tab 01/12/19 [Rx ] Magic Mouth Was-SKY/MAAL/LIDO* 5 ml SWISH SWAL QID #100 ml 06/15/19 [Rx] guaiFENesin/CODIENE 100mg/10mg [Robitussin AC 100Mg/10Mg in 5 ml] 5 ml PO Q6H PRN #100 ml MDD 20ml 06/15/19 [Rx] PMH/Surg Hx/FS Hx/Imm Hx Endocrine/Hematology History: Denies: Hx Diabetes, Hx Thyroid Disease Cardiovascular History: Denies: Hx Hypertension Respiratory History: Reports: Hx Asthma - exercise induced Denies: Hx Chronic Obstructive Pulmonary Disease (COPD) GI History: Denies: Hx Gastroesophageal Reflux Disease, Hx Ulcer - Cancer History Cancer Type, Location and Year: None reported - Surgical History Surgery Procedure, Year, and Place: wisdom teeth extraction Infectious Disease History: No Infectious Disease History: Denies: Hx Hepatitis, Hx Human Immunodeficiency Virus (HIV), Traveled Outside the [place] in Last 30 Days - Family History Known Family History: Positive: None Negative: Cardiac Disease, Diabetes - Social History Alcohol Use: None Substance Use Type: Reports: None Smoking Status (MU): Never Smoked Tobacco Have You Smoked in the Last Year: No Review of Systems Negative: Fever Positive: Sore Throat Negative: Chest Pain Positive: Shortness Of Breath, Cough All Other Systems Reviewed And Are Negative: Yes Physical Exam Triage Information Reviewed: Yes Vital Signs On Initial Exam: Initial Vitals Temp Pulse Resp BP Pulse Ox 98.6 F 89 15 149/65 100 06/15/19 20:48 06/15/19 20:48 06/15/19 20:48 06/15/19 20:48 06/15/19 20:48 Vital Signs Reviewed: Yes Appearance: Positive: Well-Appearing Skin: Positive: Warm, Dry Head/Face: Positive: Normal Head/Face Inspection Eyes: Positive: Normal, EOMI, LUCIO, Conjunctiva Clear ENT: Positive: Normal ENT inspection, Pharyngeal erythema, TMs normal, Uvula midline, Other - soft palate symmetric. Negative: Tonsillar swelling, Tonsillar exudate, Trismus, Muffled voice Neck: Positive: Supple, Nontender, No Lymphadenopathy Respiratory/Lung Sounds: Positive: Clear to Auscultation, Breath Sounds Present Cardiovascular: Positive: Normal, RRR Abdomen Description: Positive: Nontender, Soft Bowel Sounds: Positive: Present Musculoskeletal: Positive: Normal Neurological: Positive: Normal Psychiatric: Positive: Normal Procedures - Sedation Patient Received Moderate/Deep Sedation with Procedure: No Diagnostics - Vital Signs Vital Signs Temp Pulse Resp BP Pulse Ox 06/15/19 20:48 98.6 F 89 15 149/65 100 - Laboratory Lab Statement: Any lab studies that have been ordered have been reviewed, and results considered in the medical decision making process. - Radiology chest Radiology Interpretation Completed By: ED Physician Summary of Radiographic Findings: no active disease Re-Evaluation - Re-Evaluation First Eval Re-Evaluation Time: 22:24 Change: Improved Comment: feeling better after cough medication Disposition - Course Course Of Treatment: 34 year old female presents with cough for the past couple days. She states that she is having dry cough. When she cough she states that it irritates her throat and feels like it is closing up. States that she has not had any postnasal drip or sinus congestion. no fevers. No vomiting. No nausea. Denies any muscle aches. She states does not have a history of asthma or COPD. She is not a smoker. Has been taking Mucinex. On exam lungs clear to auscultation. Pharynx erythematous. Uvula midline. Soft palate symmetric. Chest x-ray normal. Gave robitussin with codeine with some improvement. will have continue such. patient understand and agrees with plan. - Differential Dx - Cardiopulmonary Differential Diagnoses - Cardiopulmonary: Bronchitis, Influenza, Lower Resp Infection - Diagnoses Provider Diagnoses: Bronchitis Discharge ED - Sign-Out/Discharge Documenting (check all that apply): Patient Departure - Discharge Plan Condition: Good Disposition: HOME Prescriptions: guaiFENesin/CODIENE 100mg/10mg [Robitussin AC 100Mg/10Mg in 5 ml] 5 ml PO Q6H PRN #100 ml MDD 20ml PRN Reason: Cough Magic Mouth Was-SKY/MAAL/LIDO* 5 ml SWISH SWAL QID #100 ml Patient Education Materials: Acute Bronchitis (ED) Referrals: [facility] [Outside] Additional Instructions: Take cough medication 5ml (1 teaspoon) every 6 hours as needed cough use magic mouth wash 5ml up to 4 times a day Use saline in the nose for nasal congestion Use humidifier Take Tylenol or ibuprofen for pain every 6 hours establish care with primary Return to ED if develop any new or worsening symptoms - Billing Disposition and Condition Condition: GOOD Disposition: Home
[2019-06-15 22:30] VITALS: BP 124/78
== END 2019-06-15 22:28 | disposition home or self-care (01) ==
LOC: ED 20:46
DX: J40 Bronchitis, not specified as acute or chronic (principal); J98.11 Atelectasis
CPT/HCPCS: 71046; 99282; A9270-GY